=== PATIENT | female | born 1995 | race Caucasian/White ===

== ENCOUNTER 2021-09-25 23:18 | Emergency (ER) | payer OTHER ==
[~2021-09-25] VITALS: Ht 160 cm; Wt 72.7 kg
[2021-09-25] MEDS ORDERED: BUPR75 PO (23:35)
[2021-09-25] MEDS ORDERED: CITA10TA99 PO (23:35)
[2021-09-26] MEDS ORDERED: ACETAMINOPHEN 500 MG TABLET PO ONE (00:45)
[2021-09-26 01:56] VITALS: BP 113/59
== END 2021-09-26 02:20 | disposition home or self-care (01) ==
LOC: EMS 23:21
DX: S83.91XA Sprain of unspecified site of right knee, initial encounter (principal); Z79.899 Other long term (current) drug therapy; X50.1XXA Overexertion from prolonged static or awkward postures, initial encounter; Y93.89 Activity, other specified; Y92.89 Other specified places as the place of occurrence of the external cause; Y99.8 Other external cause status
CPT/HCPCS: 29505; 99283